=== PATIENT | female | born 2000 | race Caucasian/White ===

== ENCOUNTER 2021-08-05 21:17 | Emergency (ER) | payer BC ==
[~2021-08-05] VITALS: Ht 165.1 cm; Wt 70.5 kg
[2021-08-05] MEDS ORDERED: KYLEENA1 EACH IY (21:55)
[2021-08-05] MEDS ORDERED: ALDACTONE50 MG PO (21:55)
[2021-08-05 22:17] LABS: HEMOGLOBIN 12.7 g/dl (12.0-15.0); MEAN CELL VOLUME 92 fl (80.0-95.0); MEAN CORPUSCULAR HEMOGLOBIN 31 pg (26.0-32.0); MEAN CORPUSCULAR HGB CONC 34 g/dl (33.0-37.0); MEAN PLATELET VOLUME 10.7 fl (7.4-10.4); PLATELET COUNT 116 K/mm3 (130-400); RED BLOOD COUNT 4.04 M/mm3 (4.10-5.30); REDCELL DISTRIBUTION WIDTH-CV 12.5 % (11.5-14.5)
[2021-08-05 22:35] LABS: ALBUMIN 3.2 gm/dL (3.5-5.0); BILIRUBIN,TOTAL 1.1 mg/dL (0.2-1.2); C-REACTIVE PROTEIN 4.55 mg/dL (0.00-0.50); CALCIUM 9.1 mg/dL (8.4-10.2); CREATININE, serum 0.8 mg/dL (0.57-1.11); MONOSCREEN NEGATIVE; POTASSIUM 3.4 mmol/L (3.5-4.5); TOTAL PROTEIN 6.4 gm/dL (6.2-8.1)
[2021-08-05 22:53] LABS: BAND 16 % (0-10); LYMPHOCYTE 58 % (20.0-51.0); NEUTROPHILS 18 % (42.0-75.2)
[2021-08-05 22:54] LABS: PLATELET ESTIMATE DECREASED (NORMAL)
[2021-08-05] MEDS ORDERED: ZOFRAN ODT4 MG PO (23:07)
[2021-08-05 23:20] VITALS: BP 115/83; PULSE 88; TEMP 98.6
== END 2021-08-05 23:20 | disposition home or self-care (01) ==
LOC: COL.ER 21:17
PROVIDERS: Family Medicine
DX: L50.9 Urticaria, unspecified (principal); F17.210 Nicotine dependence, cigarettes, uncomplicated
CPT/HCPCS: J1100